=== PATIENT | female | born 1990 | race Caucasian/White ===

== ENCOUNTER 2017-11-27 10:40 | Emergency (ER) | payer MEDICAID ==
[2017-11-27] MEDS ORDERED: NS 1,000 ML IV ONE ×2 (10:45→11:17)
--- NOTE | 2017-11-27 10:51 | EDPHY ---
General Narrative: CHIEF COMPLAINT: Hyperglycemia, abdominal pain HISTORY OF PRESENT ILLNESS: Patient presents by EMS and is seen at time of arrival. She complains of nausea vomiting started last night. She complains of severe abdominal pain that is "all over." Multiple bouts of vomiting without bloody emesis. No chest pain or shortness of breath. No cough. No sore throat. No urinary complaints. No skin lesions or cellulitis. She is insulin-dependent on 70/30 but does not take any long-acting insulin, and she does not check her blood sugars at all. She does not know what her blood sugars have been running over the past 2 weeks. She does have frequent urination but no dysuria. No flank pain. She is repeatedly asking for pain medication. REVIEW OF SYSTEMS: Ten systems reviewed and are negative unless otherwise noted in the HPI PCP: Enid khanna [facility] SPECIALISTS: Denies PAST MEDICAL HISTORY: Insulin-dependent diabetic, hep C, chronic pain PAST SURGICAL HISTORY: Remote cholecystectomy, left BKA SOCIAL HISTORY: Smoker. FAMILY HISTORY: Noncontributory EXAMINATION General Appearance: Alert, no distress, unkempt Head: normocephalic, atraumatic Eyes: Pupils equal and round, no conjunctival pallor or injection. EOMs intact ENT, Mouth: Mucous membranes moist. Airway patent Neck: Normal inspection, supple, non-tender Respiratory: Lungs are clear to auscultation. No wheezing, rhonchi or crackles Cardiovascular: Regular rate and rhythm. No murmur Gastrointestinal: Abdomen is soft and nondistended. There is tenderness in all quadrants out of proportion to palpation. No guarding. No rigidity. No CVA tenderness. Neurological: GCS 15. A&O, nonfocal, strength is symmetric. Skin: Warm and dry, no rash. Multiple areas of excoriation. No cellulitis noted. Extremities: Left leg status post BKA with prosthetic. Nontender, no pedal edema. Symmetric range of motion per Psychiatric: Mood and affect normal DIFFERENTIAL DIAGNOSES: Including but not limited to DKA, insulin-dependent diabetic with hyper glycemia , enteritis, gastritis, gastroenteritis, influenza MDM: 10:45 a.m. Nausea, vomiting, abdominal pain with hyperglycemia and insulin-dependent diabetic. Vital signs are stable and she does not meet SIRS criteria. I have ordered a DKA workup. IV fluid is infusing. She is awake alert no acute distress. She is repeatedly asking for pain medication with pain out of proportion to examination of the abdomen. I informed her that I will be happy to address her pain once I have information or examination suggesting that she warrants IV pain medication. 11:10 a.m. Venous blood gas values are in consistent with her clinical picture. I was informed by the charge nurse that this was run on the green top obtain pre- hospital not agreeing on ice. I requested that they run the test again on the green on ice to see if this changes the values. I have also discussed the findings with Dr. Reynaga. She does have an anion gap, thus we have ordered IV regular insulin. Her potassium is within normal limits. Continue with IV fluid resuscitation re-evaluate her laboratory studies. 11:30 a.m. Chest x-ray has been read by radiologist. No pneumonia. Repeat venous blood gas reveals same information from previous without significant difference. Continue with IV fluid resuscitation and IV insulin. 11:55 a.m. I was asked to re-evaluated the patient by Tarsha JOINER. There is some erythema near the IV site. I re-evaluated the patient. She is resting comfortably with vital signs stable. There is some erythema over the venous structures in the proximity of the IV. There is no evidence of extravasation as her IV is freely flowing but there does appear to be a mild reaction to the morphine. I have ordered IV Benadryl. Abdominal pain is improved from time of arrival. Still nauseated but not vomiting. 1:15 p.m. Patient re-evaluated. 2 L fluid nearly complete. We will recheck a venous blood gas for pH and a chemistry. She continues to complain of mild abdominal pain. No acute distress. Vital signs are all within normal limits. 2:00 p.m. Patient re-evaluated. Repeat venous blood gas has normalized. Repeat chemistry shows glucose of 56, thus we will provide dextrose source for her. She does appear to have a UTI although this may be contaminant. This is consistent with her area of pain. I will order Rocephin and a urine culture. 2:30 p.m. Patient re-evaluated. She is awake and alert. Vital signs are stable. She is drinking juice and eating food without difficulty. Pain is present but mild. No nausea. She is asking for pain medication. I have reviewed her prescription history and she does have a prescription for 60 Percocet on November 18. I informed her that I will order 1 dose of p.o. pain medication at this time. I do feel she is stable for discharge home with antibiotics and the nausea medication she has at home. She will contact the primary care physician at [facility]. I would like her to be seen by them tomorrow or return to emergency department for re-evaluation if no improvement. She is also instructed to return to the emergency department if she has any worsening symptoms in the interim. SUPERVISION: Patient was independently examined, but I discussed the case with my secondary supervising physician Dr. Reynaga ([facility]) Medical Decision Making: I did not see this patient while she was in the emergency department. However her care was discussed with the PA while the patient was in the department. I agree with treatment plan and management (Simba Reynaga) - Objective Vital Signs: Initial Vital Signs Temperature (C) 36.6 C 11/27/17 11:09 Heart Rate 86 11/27/17 11:09 Respiratory Rate 18 11/27/17 11:09 Blood Pressure 153/107 H 11/27/17 11:09 O2 Sat (%) 99 11/27/17 11:09 O2 Delivery Mode Room Air O2 (L/minute) 2 Allergies/Adverse Reactions: ketorolac [From Toradol] Allergy (Verified 11/27/17 11:08) tramadol Allergy (Verified 11/27/17 11:08) Home Medications: Medication Instructions Recorded Celexa 11/27/17 Cephalexin [Keflex (*)] 500 mg PO TID #21 cap 11/27/17 Famotidine [Pepcid 20 MG (*)] 20 mg PO BID #14 tab 11/27/17 HumuLIN 70/30 11/27/17 Lisinopril 11/27/17 Phenergan 12.5mg tab 11/27/17 Sulfamethox/Tmp 800/160 mg 11/27/17 [Bactrim DS] Laboratory Results: Laboratory Results 11/27/17 10:40 11/27/17 13:20 Microbiology Results: MICROBIOLOGY 11/27/17 12:20 Urine,Clean Catch Urine Culture - Preliminary Three [place] Types Medications Given: Discontinued Medications Diphenhydramine HCl (Benadryl Injection) 25 mg IVP EDNOW ONE Stop: 11/27/17 11:57 Last Admin: 11/27/17 11:59 Dose: 25 mg Sodium Chloride (Ns) 1,000 mls @ 0 mls/hr IV ONCE ONE; Wide Open PRN Reason: Protocol Stop: 11/27/17 10:46 Last Admin: 11/27/17 11:24 Dose: 1,000 mls Sodium Chloride (Ns) 1,000 mls @ 0 mls/hr IV EDNOW ONE; Wide Open PRN Reason: Protocol Stop: 11/27/17 11:18 Last Admin: 11/27/17 11:41 Dose: 1,000 mls Ceftriaxone Sodium/Dextrose (Rocephin 1 Gm (Premix)) 50 mls @ 100 mls/hr IV EDNOW ONE PRN Reason: Protocol Stop: 11/27/17 14:34 Last Admin: 11/27/17 14:16 Dose: 50 mls Insulin Human Regular (Humulin R) 10 unit IVP EDNOW ONE Stop: 11/27/17 11:29 Last Admin: 11/27/17 11:41 Dose: 10 units Morphine Sulfate (Morphine) 4 mg IVP EDNOW ONE Stop: 11/27/17 11:09 Last Admin: 11/27/17 11:21 Dose: 4 mg Ondansetron HCl (Zofran) 4 mg IVP EDNOW ONE Stop: 11/27/17 11:09 Last Admin: 11/27/17 11:19 Dose: 4 mg Oxycodone/Acetaminophen (Percocet 5/325) 1 tab PO EDNOW ONE Stop: 11/27/17 14:31 Last Admin: 11/27/17 15:32 Dose: 1 tab Departure - Departure Disposition: Home, Routine, Self-Care Clinical Impression: UTI (urinary tract infection), Nausea & vomiting, Gastritis, Diabetes mellitus with hyperglycemia Condition: Good Instructions: Cephalexin (By mouth), Famotidine (By mouth), Gastritis (ED), Urinary Tract Infection in Women (ED), Diabetic Hyperglycemia (ED) Additional Instructions: 1. Medications as prescribed to completion 2. Contact your physician at [facility] to be examined tomorrow 3. Return to emergency department if no improvement of her symptoms within 24 hr 4. Return to emergency department if worsening of your symptoms, fever, persistent vomiting or diarrhea You have a follow up appointment at the [facility] tomorrow morning, November 28 @ 9:20 AM: [facility] [address] [place] [address] Please bring your ER paperwork with you to your appointment Referrals: Enidmonica Carroll [Outside] - As per Instructions Physician,Emergency Dept, [Medical Doctor] - 1 day, if not improved Prescriptions: Cephalexin [Keflex (*)] 500 mg PO TID #21 cap Famotidine [Pepcid 20 MG (*)] 20 mg PO BID #14 tab
[2017-11-27 10:55] LABS: PLATELET COUNT 407 10^3/uL (150-400)
[2017-11-27] MEDS ORDERED: ONDANSETRON 4 MG/2 ML VIAL IVP ONE (11:08)
[2017-11-27] MEDS ORDERED: INSULIN REGULAR HUMAN 100 UNIT/ML UNIT IVP ONE (11:28)
[2017-11-27 12:17] VITALS: RESP 16
[2017-11-27] MEDS ORDERED: OXYCODONE/APAP 5/325 TAB PO ONE (14:30)
[2017-11-27 15:41] VITALS: BP 128/88; PULSE 91; TEMP 96.8; O2SAT 98
--- NOTE | 2017-11-27 15:58 | ASMTCMCOM ---
CM Note CM Note Notes: Follow up appointment at [facility] in [facility] scheduled for tomorrow at 9:20 AM. ER report faxed to the clinic . Appointment details added to discharge summary Date Signed: 11/27/2017 03:57 PM Electronically Signed By:Tamiko Jacobson RN
== END 2017-11-27 15:40 | disposition home or self-care (01) ==
DX: E11.65 Type 2 diabetes mellitus with hyperglycemia (principal); K29.70 Gastritis, unspecified, without bleeding; N39.0 Urinary tract infection, site not specified; B96.89 Other specified bacterial agents as the cause of diseases classified elsewhere; E86.9 Volume depletion, unspecified; Z79.4 Long term (current) use of insulin; Z90.49 Acquired absence of other specified parts of digestive tract
CPT/HCPCS: 80305; 96365; J0696; J1200; J1815; J2405